=== PATIENT | female | born 2000 | race Caucasian/White ===

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

== ENCOUNTER → 2018-04-12 | Outpatient (CLI) | payer OTHER ==
[2018-04-12 13:24] LABS: BASO % 0.5 % (0.0-1.0); EOS # 0.2 10^3/uL (0.0-0.50); EOS % 2.5 % (0.0-3.0); HEMATOCRIT 43.5 % (36.0-47.0); HEMOGLOBIN 14.3 g/dl (12.0-15.5); IMMATURE GRANULOCYTE % 0.4 % (0-3.0); LYMPH # 2.1 10^3/uL (1.5-6.5); LYMPH % 26.7 % (24.0-44.0); MEAN CORPUSCULAR HEMOGLOBIN 28.6 pg (27.0-33.0); MEAN CORPUSCULAR HGB CONC 32.9 g/dl (32.0-36.5); MONO # 0.7 10^3/uL (0.0-0.8); MONO % 8.4 % (0.0-5.0); NEUTROPHILS # 4.8 10^3/uL (1.8-7.7); NEUTROPHILS % 61.5 % (36.0-66.0); PLATELET COUNT, AUTOMATED 191 10^3/uL (150-450); RED CELL DISTRIBUTION WIDTH 13.2 % (11.5-14.5); WHITE BLOOD COUNT 7.9 10^3/uL (4.0-10.0)
[2018-04-12 13:53] LABS: ALBUMIN/GLOBULIN RATIO 1.21 (1.00-1.93); ALKALINE PHOSPHATASE 90 U/L (45-117); ALT/SGPT 28 U/L (12-78); ANION GAP 9 MEQ/L (8-16); AST/SGOT 14 U/L (7-37); BILIRUBIN,TOTAL 0.7 MG/DL (0.2-1.0); BLOOD UREA NITROGEN 12 MG/DL (7-18); CARBON DIOXIDE LEVEL 26 MEQ/L (21-32); CHLORIDE LEVEL 109 MEQ/L (98-107); CHOLESTEROL LEVEL 145 MG/DL (<200); CHOLESTEROL RISK RATIO 4.531 (<5); CREATININE FOR GFR 0.86 MG/DL (0.55-1.30); FREE T4 0.95 NG/DL (0.78-1.33); GLUCOSE, FASTING 83 MG/DL (70-100); HDL CHOLESTEROL 32 MG/DL (>40); LDL CHOLESTEROL 88.8 MG/DL (<100); NON-HDL-C 113 MG/DL; POTASSIUM SERUM 4.2 MEQ/L (3.5-5.1); SODIUM LEVEL 144 MEQ/L (136-145); TOTAL PROTEIN 7.3 GM/DL (6.4-8.2); TRIGLYCERIDES LEVEL 121 MG/DL (<150)
== END ==
LOC: M SMT 09:54
DX: Z68.54 Body mass index [BMI] pediatric, 95th percentile for age to less than 120% of the 95th percentile for age (principal)
CPT/HCPCS: 84443

== ENCOUNTER → 2019-04-11 | Outpatient (CLI) | payer OTHER ==
[2019-04-11 19:00] LABS: ALBUMIN 4.2 GM/DL (3.2-5.2); ALT/SGPT 36 U/L (12-78); BILIRUBIN,TOTAL 0.9 MG/DL (0.2-1.0); BLOOD UREA NITROGEN 12 MG/DL (7-18); CALCIUM LEVEL 9.4 MG/DL (8.5-10.1); CARBON DIOXIDE LEVEL 24 MEQ/L (21-32); CHLORIDE LEVEL 109 MEQ/L (98-107); CREATININE FOR GFR 0.82 MG/DL (0.55-1.30); GLUCOSE, FASTING 94 MG/DL (70-100); POTASSIUM SERUM 4.1 MEQ/L (3.5-5.1); SODIUM LEVEL 141 MEQ/L (136-145); TOTAL PROTEIN 7.5 GM/DL (6.4-8.2)
[2019-04-11 19:10] LABS: BASO # 0.1 10^3/uL (0.0-0.2); BASO % 0.6 % (0.0-1.0); EOS # 0.2 10^3/uL (0.0-0.50); EOS % 2.8 % (0.0-3.0); HEMATOCRIT 46.2 % (36.0-47.0); HEMOGLOBIN 14.9 g/dl (12.0-15.5); LYMPH # 2.2 10^3/uL (1.5-6.5); LYMPH % 27.1 % (24.0-44.0); MEAN CORPUSCULAR HEMOGLOBIN 29.2 pg (27.0-33.0); MEAN CORPUSCULAR HGB CONC 32.3 g/dl (32.0-36.5); MEAN CORPUSCULAR VOLUME 90.4 fl (80.0-96.0); MONO # 0.7 10^3/uL (0.0-0.8); NEUTROPHILS % 61.1 % (36.0-66.0); PLATELET COUNT, AUTOMATED 180 10^3/uL (150-450); RED BLOOD COUNT 5.11 10^6/uL (4.00-5.40); WHITE BLOOD COUNT 8.2 10^3/uL (4.0-10.0)
[2019-04-11 20:33] LABS: PROTHROMBIN TIME 12.9 SECONDS (11.8-14.0)
[2019-04-11 20:34] LABS: PARTIAL THROMBOPLASTIN TIME 35.9 SECONDS (25.0-38.4)
== END ==
LOC: M SMT 10:31
PROVIDERS: ATTEND Physician Assistant
DX: D69.6 Thrombocytopenia, unspecified (principal)

== ENCOUNTER → 2019-04-11 | Outpatient (REF) ==
[2019-04-11 19:09] LABS: BASO # 0.1 10^3/uL (0.0-0.2); BASO % 0.6 % (0.0-1.0); EOS # 0.2 10^3/uL (0.0-0.50); EOS % 2.6 % (0.0-3.0); HEMATOCRIT 45.5 % (36.0-47.0); HEMOGLOBIN 15.3 g/dl (12.0-15.5); LYMPH # 2.2 10^3/uL (1.5-6.5); LYMPH % 27.5 % (24.0-44.0); MEAN CORPUSCULAR HEMOGLOBIN 30.5 pg (27.0-33.0); MEAN CORPUSCULAR HGB CONC 33.6 g/dl (32.0-36.5); MEAN CORPUSCULAR VOLUME 90.6 fl (80.0-96.0); MONO # 0.6 10^3/uL (0.0-0.8); NEUTROPHILS # 4.9 10^3/uL (1.8-7.7); NEUTROPHILS % 60.9 % (36.0-66.0); PLATELET COUNT, AUTOMATED 176 10^3/uL (150-450); RED BLOOD COUNT 5.02 10^6/uL (4.00-5.40)
== END ==
LOC: M LAB REF 09:18
PROVIDERS: ATTEND Allergy & Immunology Allergy
DX: J45.30 Mild persistent asthma, uncomplicated (principal)

== ENCOUNTER → 2019-10-03 | Outpatient (REF) | payer OTHER | LOC: M SFHCWAGY 18:16 | PROVIDERS: ATTEND Advanced Practice Midwife | DX: Z12.4 Encounter for screening for malignant neoplasm of cervix (principal) ==

== ENCOUNTER → 2020-08-05 | Outpatient (CLI) | payer OTHER | LOC: M LABSMTC 12:10 | PROVIDERS: ATTEND Family Medicine | DX: Z20.828 Contact with and (suspected) exposure to other viral communicable diseases (principal) ==

== ENCOUNTER → 2021-04-06 | Outpatient (REF) | payer OTHER ==
[2021-04-06 10:59] LABS: BASO # 0.1 10^3/uL (0.0-0.2); BASO % 0.6 % (0.0-1.0); EOS # 0.3 10^3/uL (0.0-0.5); EOS % 3.5 % (0.0-3.0); HEMATOCRIT 45.5 % (36.0-47.0); HEMOGLOBIN 14.8 g/dl (12.0-15.5); LYMPH # 2.7 10^3/uL (1.5-5.0); LYMPH % 32.8 % (24.0-44.0); MEAN CORPUSCULAR HEMOGLOBIN 28.7 pg (27.0-33.0); MEAN CORPUSCULAR HGB CONC 32.5 g/dl (32.0-36.5); MEAN CORPUSCULAR VOLUME 88.2 fl (80.0-96.0); MONO # 0.8 10^3/uL (0.0-0.8); MONO % 9.6 % (2.0-8.0); NEUTROPHILS # 4.4 10^3/uL (1.5-8.5); NEUTROPHILS % 53.3 % (36.0-66.0); PLATELET COUNT, AUTOMATED 166 10^3/uL (150-450); RED BLOOD COUNT 5.16 10^6/uL (4.00-5.40); WHITE BLOOD COUNT 8.2 10^3/uL (4.0-10.0)
[2021-04-06 11:29] LABS: ALT/SGPT 65 U/L (12-78); BILIRUBIN,TOTAL 0.8 MG/DL (0.2-1.0); BLOOD UREA NITROGEN 11 MG/DL (7-18); CALCIUM LEVEL 9.1 MG/DL (8.5-10.1); CARBON DIOXIDE LEVEL 25 MEQ/L (21-32); CHLORIDE LEVEL 108 MEQ/L (98-107); CREATININE FOR GFR 0.82 MG/DL (0.55-1.30); GLOMERULAR FILTRATION RATE > 60.0 (>60); GLUCOSE, FASTING 105 MG/DL (70-100); POTASSIUM SERUM 4.1 MEQ/L (3.5-5.1); SODIUM LEVEL 140 MEQ/L (136-145)
== END ==
LOC: M LABDRWAD 10:37
PROVIDERS: ATTEND Physician Assistant
DX: D69.6 Thrombocytopenia, unspecified (principal)

== ENCOUNTER → 2022-06-08 | Outpatient (REF) | payer OTHER | LOC: M SFHCWAGY 17:32 | PROVIDERS: ATTEND Advanced Practice Midwife | DX: Z12.4 Encounter for screening for malignant neoplasm of cervix (principal) ==

== ENCOUNTER → 2022-07-22 | Outpatient (REF) | payer OTHER | LOC: M LAB REF 17:15 | PROVIDERS: ATTEND Physician Assistant | DX: J06.9 Acute upper respiratory infection, unspecified (principal) ==

== ENCOUNTER → 2024-02-14 | Outpatient (REF) | payer OTHER, MEDICAID | LOC: M SFHCWAGY 12:52 | PROVIDERS: ATTEND Advanced Practice Midwife | DX: Z12.4 Encounter for screening for malignant neoplasm of cervix (principal) ==

== ENCOUNTER → 2024-03-11 | Outpatient (REF) | payer OTHER, MEDICAID | LOC: M LAB REF 18:26 | PROVIDERS: ATTEND Physician Assistant | DX: N30.01 Acute cystitis with hematuria (principal) ==

== ENCOUNTER → 2025-08-26 | Outpatient (REF) | payer OTHER, MEDICAID | LOC: M SFHCWAGY 17:28 | PROVIDERS: ATTEND Advanced Practice Midwife | DX: Z12.4 Encounter for screening for malignant neoplasm of cervix (principal) ==